=== PATIENT | female | born 1940 | race Caucasian/White ===

== ENCOUNTER 2018-01-02 05:21 | Inpatient (IN) | payer BC, OTHER ==
[2017-12-04 14:13] VITALS: BMI 33.0
--- NOTE | 2017-12-04 14:51 | PAT Medication Instructions ---
Service Date Dec 04, 2017. Current Home Medication List Atenolol (Tenormin), 50 MG PO QAM Cholecalciferol (Vitamin D3), 5,000 UNITS PO QAM Esomeprazole Magnesium (Nexium), 20 MG PO QAM Krill Oil (Megared [place]-3 Krill Oil 500 mg), 4,000 MG PO QAM Misc Natural Products (Osteo Bi-Flex Advanced Do), 1 TAB PO QAM Polyethylene Glycol 3350 (Miralax), 2 TBS PO HS PRN for PRN Medication Instructions For Your Scheduled Surgery - Hold the following medications 2 weeks prior to surgery: Krill Oil (Megared [place]-3 Krill Oil 500 mg), 4,000 MG PO QAM Misc Natural Products (Osteo Bi-Flex Advanced Do), 1 TAB PO QAM - Hold the following medications the morning of surgery: Polyethylene Glycol 3350 (Miralax), 2 TBS PO HS PRN for PRN Cholecalciferol (Vitamin D3), 5,000 UNITS PO QAM - Take the following medications the morning of surgery with a sip of water: Atenolol (Tenormin), 50 MG PO QAM Esomeprazole Magnesium (Nexium), 20 MG PO QAM - Take the following medications as scheduled the night before surgery: Polyethylene Glycol 3350 (Miralax), 2 TBS PO HS PRN for PRN (if needed) If you have any questions please call us at [phone] or [phone] or [phone]
[2017-12-04 15:28] LABS: BASO % 0.4 %; BASO ABS # 0.03 K/uL (0-0.2); EOS % 2.5 %; EOS ABS # 0.17 K/uL (0-0.5); HEMATOCRIT 40.5 % (37-47); HEMOGLOBIN 13.7 g/dL (12.0-16.0); IG# 0.02 K/uL (0.00-0.02); LYMPH ABS # 1.87 K/uL (1.2-3.4); MEAN CELL VOLUME 90.4 fL (80-100); MEAN CORPUSCULAR HEMOGLOBIN 30.6 pg (25-34); MEAN CORPUSCULAR HGB CONC 33.8 g/dl (32-36); MEAN PLATELET VOLUME 10.8 fL (7.4-10.4); MONO % 8.7 %; MONO ABS # 0.58 K/uL (0.11-0.59); NEUT % 60.1 %; NEUT ABS # 4.02 K/uL (1.4-6.5); PLATELET COUNT 272 K/uL (130-400); RED CELL DISTRIBUTION WIDTH CV 12.9 % (11.5-14.5); RED CELL DISTRIBUTION WIDTH SD 42.2 fL (36.4-46.3); WHITE BLOOD COUNT 6.69 K/uL (4.8-10.8)
[2017-12-04 15:43] LABS: PTT PATIENT 25.1 SECONDS (21.0-31.0)
--- NOTE | 2017-12-04 15:51 | DIAGNOSTIC IMAGING REPORT ---
CHEST 2 VIEWS ROUTINE CLINICAL HISTORY: 77 years-old Female presenting with preoperative assessment. TECHNIQUE: PA and lateral views of the chest were obtained. COMPARISON: 06/12/2013. FINDINGS: Atherosclerosis of the aortic arch. Cardiac silhouette normal in size. Lungs and pleural spaces clear. Osseous structures normal. Surgical clips noted in the right breast. Cholecystectomy clip. IMPRESSION: 1. No acute cardiopulmonary disease. Electronically signed by: Jeffery Hernandes M.D. 12/04/2017 3:50 PM Dictated Date/Time: 12/04/2017 3:49 PM
[2017-12-05 07:01] LABS: HEMOGLOBIN A1C 5.9 % (4.5-5.6)
--- NOTE | 2018-01-01 18:25 | HISTORY & PHYSICAL EXAMINATION ---
DATE OF ADMISSION: 01/02/2018 CHIEF COMPLAINT: Chronic right knee pain. HISTORY OF PRESENT ILLNESS: This is a 77-year-old female patient of Dr. Urban'azalea complaining of chronic right knee pain, longstanding, now progressively getting worse. The patient has failed conservative treatment including anti-inflammatories, the use of a sleeve and a cane. She has been diagnosed with end-stage osteoarthritis per clinical and radiographic exams. The patient has increased pain with weightbearing activities and her pain does interfere with her activities of daily living. PAST MEDICAL HISTORY: Hypertension, history of blood clots, neck problems, acid reflux, obesity, skin cancer. SOCIAL HISTORY: Nonsmoker, nondrinker. PAST SURGICAL HISTORY: Cholecystectomy, left knee replacement, tonsil surgery, eye surgery and tubal ligation. REVIEW OF SYSTEMS: The patient complains of chronic right knee pain, otherwise denies any shortness of breath, chest pain, nausea, vomiting or any other joint complaints. FAMILY HISTORY: Noncontributory. MEDICATIONS: Nexium 20 mg daily, atenolol 25 mg daily, fish oil daily, bioflex [id number] daily, calcium 500 with vitamin D daily. ALLERGIES: INCLUDES LATEX AND OXYCODONE. PHYSICAL EXAMINATION: GENERAL: Well-developed, well-nourished 77-year-old female in no acute distress. She is alert and oriented x3 and pleasant. HEENT: Normocephalic, atraumatic. Extraocular motions are intact. Pupils are equal and reactive to light. HEART: Regular rate and rhythm. No murmurs appreciated. LUNGS: Clear. ABDOMEN: Soft and nontender. Bowel sounds are present. EXTREMITIES: Right knee reveals lateral joint line tenderness with a valgus deformity. She has a limited range of motion of 0-120 degrees. She has a mild effusion. She has 4/5 strength. NEUROLOGIC: Neurovascularly, she is intact in her right lower extremity. DIAGNOSES: Right knee end-stage osteoarthritis, hypertension, history of blood clots, neck problems, osteoarthritis, acid reflux and obesity and skin cancer. PLAN: The patient was advised of her diagnosis. Indications, risks, benefits, postop course have all been reviewed. The patient wished to proceed with a right total knee arthroplasty. Necessary consent forms, preoperative testing and clearances will be obtained.
[~2018-01-02] VITALS: Ht 160 cm; Wt 85.9 kg
[2018-01-02] VITALS (9 sets, daily range): BP systolic 116–164; BP diastolic 58–83; PULSE 48–63; TEMP 36.4–36.8; O2SAT 94–100; Ht 160 cm; Wt 85.9 kg
[~2018-01-02 05:21] MED LIST: ATEN-173 PO; CHOL20007 PO; ESOM20CA PO; KRIL1CAP18 PO; MISCTAB78 PO; POLY335019 PO
[2018-01-02] MEDS ORDERED: DEXAMETHASONE 4 MG TAB PO SCH (06:00)
[2018-01-02] MEDS ORDERED: FAMOTIDINE 20 MG TAB PO SCH (06:00)
[2018-01-02] MEDS ORDERED: METOCLOPRAMIDE HCL 10 MG TAB PO SCH (06:00)
[2018-01-02] MEDS ORDERED: LACTATED RINGER'S 1000ML 1,000 ML IV SCH (06:00)
[2018-01-02] MEDS ORDERED: LACTATED RINGER'S 1000ML 500 ML IV SCH (06:00)
[2018-01-02] MEDS ORDERED: ACETAMINOPHEN 500 MG TAB PO SCH (06:00)
[2018-01-02] MEDS ORDERED: ROPIVACAINE 5MG/ML 30 ML 150 MG, BUPIVACAINE 0.5% MPF INJ 30 ML, EpINEphrine HCL INJ 0.... INFIL SCH ×8 (06:00)
[2018-01-02] MEDS ORDERED: CEFAZOLIN 2000MG IV PUSH 15 ML IV SCH (06:00)
[2018-01-02] MEDS ORDERED: GABAPENTIN 300 MG CAP PO SCH (06:00)
[2018-01-02] MEDS ORDERED: CeleBREX 200 MG CAP PO SCH (06:00)
[2018-01-02] MEDS ORDERED: BUPIVACAINE 0.5 % 5 MG/1 ML PF 10ML VIAL ONE (06:25)
[2018-01-02] MEDS ORDERED: BUPIVACAINE 0.25% 30 ML VIAL ONE (06:26)
[2018-01-02] MEDS ORDERED: ORTHO JOINT ANESTHETIC ONE (07:01)
[2018-01-02] MEDS ORDERED: BACITRACIN 50000 UNIT VIAL ONE (07:01)
[2018-01-02] MEDS ORDERED: POVIDONE-IODINE OP SOLN 30 ML BTL ONE (07:01)
[2018-01-02] MEDS ORDERED: FENTANYL CITRATE INJ 50 MCG/1 ML 2 ML VIAL ONE (07:09)
[2018-01-02] MEDS ORDERED: MIDAZOLAM HCL 1 MG/ML 2ML VIAL ONE ×2 (07:09→07:50)
--- NOTE | 2018-01-02 07:14 | History & Physical Bridge Note ---
H&P Re-Evaluation Bridge Note: I have examined the patient, reviewed the History & Physical and in the interval since the performance of the History & Physical I have noted the following changes of clinical significance: No changes noted
[2018-01-02] MEDS ORDERED: ONDANSETRON INJ 2 MG/ML 2 ML VIAL IV PRN ×2 (07:15→09:15)
[2018-01-02] MEDS ORDERED: ATROPINE SULFATE 0.1 MG/ML 5ML SYR IV PRN (07:15)
[2018-01-02] MEDS ORDERED: EpHEDrine SULFATE INJ 50 MG/ML AMP IV PRN (07:15)
[2018-01-02] MEDS ORDERED: LIDOCAINE HCL 2% 2 ML VIAL (20MG/ML) ONE ×2 (07:27→08:01)
[2018-01-02] MEDS ORDERED: PROPOFOL IV EMULSION 10 MG/ML 20 ML VIAL IV ONE ×2 (07:46→08:01)
[2018-01-02] MEDS ORDERED: EpHEDrine SULFATE 50MG/5ML SYR ONE (08:01)
[2018-01-02] MEDS ORDERED: METOCLOPRAMIDE HCL INJ 5 MG/ML 2 ML VIAL IV PRN (09:15)
[2018-01-02] MEDS ORDERED: SOD PHOSPHATE/SOD BIPHOSPHATE ENEMA 132 ML BTL PR PRN (09:15)
[2018-01-02] MEDS ORDERED: MoRPHine SULFATE 2 MG/ML CARP IV PRN (09:15)
[2018-01-02] MEDS ORDERED: CEFAZOLIN IV 2,000 MG in DEXTROSE 5% 50ML 50 ML IV SCH (09:15)
[2018-01-02] MEDS ORDERED: BISACODYL 10 MG SUPP PR PRN (09:15)
[2018-01-02] MEDS ORDERED: MAGNESIUM HYDROXIDE SUSP 30 ML UDC PO PRN (09:15)
--- NOTE | 2018-01-02 09:17 | [facility] Post Operative Brief Note ---
Immediate Operative Summary Operative Date Jan 02, 2018. Pre-Operative Diagnosis End stage osteoarthritis, right knee Post-Operative Diagnosis End stage osteoarthritis, right knee Procedure(s) Performed Right Total Knee Arthroplasty Surgeon Dr. Urban Mercerizing Range Feeder Surgeon(s) Jason Summers PA-C Estimated Blood Loss 5 cc Findings Consistent with Post-Op Diagnosis Specimens A: Right knee bone and tissue Drains 2 hemovac Anesthesia Type MAC Spinal Regional Complication(s) none
--- NOTE | 2018-01-02 09:33 | [facility] Operative Report ---
Operative Report Operative Date Jan 02, 2018. Pre-Operative Diagnosis End stage osteoarthritis, right knee Post-Operative Diagnosis Same Procedure(s) Performed Right total knee arthroplasty Surgeon Dr. Urban Freight Agent Surgeon(s) Jason Summers PA-C Estimated Blood Loss 5 cc Findings Tricompartmental DJD valgus knee grade 4 lateral compartment with some bone loss posterior lateral tibial plateau Specimens A: Right knee bone and tissue Drains 2 hemovac Anesthesia Spinal sedation adductor block orthomix Complication(s) None Disposition Recovery Room / PACU Indications End-stage osteoarthritis of the right knee [id number] failed conservative management Description of Procedure The patient was taken to the operating room and anesthetized under spinal and sedation and adductor block. Patient was placed supine on the the operating table. A pneumatic tourniquet was placed about the right upper thigh. The knee exam demonstrated a 15 flexion contracture with flexion to 100 and a valgus knee. An anterior longitudinal incision was made across the knee. Skin flaps were elevated. An incision was made into the medial retinaculum and extended up into the mid third of the quadriceps tendon and extended down to the tibial tubercle. Intra-articular findings demonstrated tricompartmental DJD [id number] lateral compartment some bone loss in the posterior lateral compartment on the tibia chronic degenerative tearing lateral meniscus with some meniscal loss. The knee was exposed by excising cruciate ligaments and menisci. The infrapatellar fat pad was resected. The fat pad over the anterior femur at the upper aspect of the articular surface was resected for placement of the component in that area. A subperiosteal peel lateral release was performed around the patella The Vidal and nephew journey 2.0 total knee arthroplasty system was utilized for the procedure. The custom femoral cutting guide was pinned in position. The distal femoral cut was made. The size 3, 5 in 1 cutting block was placed. The anterior posterior and chamfer cuts were made. The knee was extended and a free hand cut technique was performed to the patella. The patella with was measured and the width was reproduced using a 29 dome patella component. 3 drill holes are made for the patella component pegs. The tibia was then subluxed. The custom tibial cutting block was pinned in position and the proximal tibial cut was made with the oscillating saw. The size 2 tibial trial was externally rotated in line with the tibial tubercle and pinned in position. The punch for the stem was used and the collet was placed. Tibial trials were used for the insert. The size 10 trial gave balanced ligaments through full range of motion. Patella tracking was assessed with range of motion. The patella tracked centrally. The trials were removed. The Orthomix anesthetic cocktail was injected per protocol. The cut bone surfaces and soft tissue were copiously irrigated with antibiotic solution with bacitracin. The final components were cemented with Simplex cement. The final components were posterior stabilized Oxinium Vidal & Nephew journey 2.0 size 3 femoral component with size 2 primary tibial baseplate and size 10 high flex posterior stabilized polyethylene insert and 29 mm dome patella. While the cement cured the Betadine soak was used per protocol. When the cement cured the knee was copiously irrigated with pulsatile lavage antibiotic solution with bacitracin. 2 drains were brought out laterally connected to Hemovac. The quadriceps tendon and medial retinaculum were closed with interrupted [id number] #1 Vicryl sutures. The knee was taken through full range of motion and repair was secure. The subcutaneous tissues were closed with 2-0 Vicryl sutures. The skin was closed with tara. A sterile dressing was applied. The tourniquet was let down and the patient had good capillary refill to the extremity. The patient tolerated the procedure well. My physician reproductive healthcare assistant Jason ARNOLD assisted in the procedure including prepping draping leg positioning soft tissue retraction instrument management and assisted in the closure ,dressings application and will participate in postoperative care the patient. I attest to the content of the Intraoperative Record and any orders documented therein. Any exceptions are noted below.
--- NOTE | 2018-01-02 09:44 | DIAGNOSTIC IMAGING REPORT ---
R KNEE 2 VIEWS ROUTINE CLINICAL HISTORY: Degenerative arthritis. Postop study COMPARISON: None. DISCUSSION: There are postsurgical changes of a total right knee arthroplasty and patellar resurfacing. The femoral tibial components appear well seated. Overlying skin tara and surgical drains are evident. There is air within soft tissues consistent with recent surgery. IMPRESSION: Postsurgical changes of a total right knee arthroplasty. Electronically signed by: Gilberto Medina M.D. 01/02/2018 9:43 AM Dictated Date/Time: 01/02/2018 9:42 AM
--- NOTE | 2018-01-02 09:58 | Anesthesiology Progress Note ---
Anesthesia Post Op Note Date & Time Jan 02, 2018 at 09:58 Vital Signs Pain Intensity: 0 Vital Signs Past 12 Hours Date Time Temp Pulse Resp B/P (MAP) Pulse Ox O2 Delivery O2 Flow Rate FiO2 01/02/18 09:48 49 16 01/02/18 09:48 48 16 97 01/02/18 09:46 134/57 01/02/18 09:43 49 16 01/02/18 09:43 49 16 96 01/02/18 09:41 138/72 01/02/18 09:38 55 20 01/02/18 09:38 56 20 99 01/02/18 09:36 142/64 01/02/18 09:35 36.3 53 16 142/64 (72) 97 Nasal Cannula 2 Oxymask 01/02/18 09:33 53 17 01/02/18 09:33 53 17 99 01/02/18 09:32 51 17 01/02/18 09:32 51 17 01/02/18 09:32 51 17 97 01/02/18 09:32 51 17 97 01/02/18 09:31 132/63 01/02/18 09:31 132/63 01/02/18 09:27 54 16 98 01/02/18 09:27 54 16 98 01/02/18 09:27 53 16 01/02/18 09:27 53 16 01/02/18 09:26 140/58 01/02/18 09:26 140/58 01/02/18 09:22 54 20 01/02/18 09:22 53 20 98 01/02/18 09:22 54 20 01/02/18 09:22 53 20 98 01/02/18 09:20 121/57 01/02/18 09:20 121/57 01/02/18 09:17 50 17 01/02/18 09:17 50 17 01/02/18 09:17 50 17 97 01/02/18 09:17 50 17 97 01/02/18 09:15 121/51 01/02/18 09:15 121/51 01/02/18 09:12 54 21 01/02/18 09:12 54 21 123/57 97 01/02/18 09:12 36.3 51 16 123/57 (73) 97 Oxymask 10 01/02/18 09:12 54 21 123/57 97 01/02/18 09:12 54 21 01/02/18 05:40 36.6 48 20 164/83 95 Room Air Notes Mental Status: alert / awake / arousable, participated in evaluation Pt Amnestic to Procedure: Yes Nausea / Vomiting: adequately controlled Pain: adequately controlled Airway Patency, RR, SpO2: stable & adequate BP & HR: stable & adequate Hydration State: stable & adequate Neuraxial Anesthesia: was administered, sensory block is resolving Anesthetic Complications: no major complications apparent
[2018-01-02] MEDS ORDERED: POLYETHYLENE (MIRALAX) 17 GM PACK PO PRN (10:45)
--- NOTE | 2018-01-02 10:53 | History and Physical ---
History & Physical Date & Time of Service: Jan 02, 2018 at 10:50 Chief Complaint: Right Knee Osteoarthritis Primary Care Physician: Dr. Alexander History of Present Illness Source: patient, clinic records, hospital records This is a 77yo F with a PMH of HTN, GERD and OA who is POD #0 s/p R TKA by Dr. Urban. Patient is doing well post-operatively. States that knee pain is currently a 0/10. Denies any pain, fever, chills, lightheadedness, headache, visual changes, sore throat, CP, SOB, abdominal pain, nausea, vomiting, dysuria or LE swelling. PCP is Dr. Alexander from [place], [place]. Had a L TKA performed by Dr. Urban in 2012. Denies history of CAD, DM II, CKD. Had a DVT 2/2 fracture in foot >10 years ago. Has not been on anticoagulation since. Past Medical/Surgical History Medical Problems: (1) GERD (gastroesophageal reflux disease) Status: Chronic (2) H/O deep venous thrombosis Status: Chronic (3) HTN (hypertension) Status: Chronic (4) Osteoarthritis of both knees Status: Chronic (5) Vitamin D deficiency Status: Chronic Surgical Problems: (1) H/O tubal ligation Status: Chronic (2) S/P cholecystectomy Status: Chronic (3) Status post left knee replacement Permanent Comment: [address] Urban Status: Chronic Family History Diabetes mellitus Hypertension Social History Smoking Status: Never Smoker Alcohol Use: none Drug Use: none Marital Status: Housing status: lives with significant other Immunizations History of Influenza Vaccine: N/A History of Tetanus Vaccine?: Unknown History of Pneumococcal: Yes History of Hepatitis B Vaccine: Unknown Allergies Coded Allergies: Oxycodone (Verified Allergy, Unknown, FELT GOOFY DISORIENTED LIKE A ZOMBIE NAUSEA VOMITING, 01/02/18) Statins (Verified Allergy, Unknown, COUGH, 01/02/18) Adhesives (Verified Adverse Reaction, Intermediate, SKIN TEARS AROUND GALLBLADDER SURGERY IRRITATES SKIN-TAPE, 01/02/18) SKIN TEARS AROUND GALLBLADDER SURGERY YEARS AGO - PT THOUGHT IT WAS A LATEX PRODUCT BUT NEVER HAD ANY OTHER REACTIONS TO RUBBER GLOVES ETC. Home Medications Scheduled Atenolol (Tenormin), 75 MG PO QAM Cholecalciferol (Vitamin D3), 5,000 UNITS PO QAM Esomeprazole Magnesium (Nexium), 20 MG PO QAM Krill Oil (Megared [place]-3 Krill Oil 500 mg), 4,000 MG PO QAM Misc Natural Products (Osteo Bi-Flex Advanced Do), 1 TAB PO QAM Scheduled PRN Polyethylene Glycol 3350 (Miralax), 2 TBS PO HS PRN for PRN Review of Systems Ten systems reviewed and negative except as noted in the HPI. Physical Exam Vital Signs Date Time Temp Pulse Resp B/P (MAP) Pulse Ox O2 Delivery O2 Flow Rate FiO2 01/02/18 10:48 100 Nasal Cannula 2.0 01/02/18 10:15 36.4 54 16 154/69 (97) 100 Nasal Cannula 2.0 01/02/18 10:15 100 Nasal Cannula 2.0 01/02/18 10:04 49 16 01/02/18 10:04 49 16 96 01/02/18 10:01 144/57 01/02/18 09:59 57 21 99 01/02/18 09:59 58 21 01/02/18 09:55 128/59 01/02/18 09:54 47 16 96 01/02/18 09:54 47 16 01/02/18 09:51 120/58 01/02/18 09:49 47 17 01/02/18 09:49 47 17 97 01/02/18 09:48 49 16 01/02/18 09:48 48 16 97 01/02/18 09:46 134/57 01/02/18 09:43 49 16 01/02/18 09:43 49 16 96 01/02/18 09:41 138/72 01/02/18 09:38 55 20 01/02/18 09:38 56 20 99 01/02/18 09:36 142/64 01/02/18 09:35 36.3 53 16 142/64 (72) 97 Nasal Cannula 2 Oxymask 01/02/18 09:33 53 17 01/02/18 09:33 53 17 99 01/02/18 09:32 51 17 01/02/18 09:32 51 17 01/02/18 09:32 51 17 97 01/02/18 09:32 51 17 97 01/02/18 09:31 132/63 01/02/18 09:31 132/63 01/02/18 09:27 54 16 98 01/02/18 09:27 54 16 98 01/02/18 09:27 53 16 01/02/18 09:27 53 16 01/02/18 09:26 140/58 01/02/18 09:26 140/58 01/02/18 09:22 54 20 01/02/18 09:22 53 20 98 01/02/18 09:22 54 20 01/02/18 09:22 53 20 98 01/02/18 09:20 121/57 01/02/18 09:20 121/57 01/02/18 09:17 50 17 01/02/18 09:17 50 17 01/02/18 09:17 50 17 97 01/02/18 09:17 50 17 97 01/02/18 09:15 121/51 01/02/18 09:15 121/51 01/02/18 09:12 54 21 01/02/18 09:12 54 21 123/57 97 01/02/18 09:12 36.3 51 16 123/57 (73) 97 Oxymask 10 01/02/18 09:12 54 21 123/57 97 01/02/18 09:12 54 21 01/02/18 05:40 36.6 48 20 164/83 95 Room Air General Appearance: WD/WN, no apparent distress, + pertinent finding (Resting comfortably ) Head: normocephalic, atraumatic Eyes: normal inspection, PERRL, sclerae normal ENT: normal ENT inspection, hearing grossly normal, pharynx normal (moist mucous membranes ) Neck: supple, thyroid normal, trachea midline Respiratory/Chest: chest non-tender, lungs clear, normal breath sounds, no respiratory distress, no accessory muscle use Cardiovascular: regular rate, rhythm, no murmur, normal peripheral pulses Abdomen/GI: non tender, soft, no organomegaly Back: normal inspection, no CVA tenderness Extremities/Musculoskelatal: normal inspection (R knee with dressing in place. Clean, dry, intact. Drain visualized. ), no calf tenderness, normal capillary refill, no pedal edema, + pertinent finding (SCDs) Neurologic/Psych: no motor/sensory deficits, alert, normal mood/affect, oriented x 3 Skin: normal color, warm/dry Impression Assessment and Plan This is a 77yo F with a PMH of HTN, GERD and OA who is POD #0 s/p R TKA by Dr. Urban. Right Knee OA s/p R TKA: -POD #0 s/p R TKA -Doing well post-operatively -Per ortho for pain control, wound care, anticoagulation and activities -Monitor H&H, continue incentive spirometry, PT/OT when appropriate HTN: -Continue home atenolol -Monitor and add additional agent if needed Vit D deficiency: -Cont home dose Vit D GERD: -PPI held for now PCP: Dr Alexander ([place]) Dispo: Per ortho Patient seen in collaboration with Dr. Conner. Please see addendum. Thank you for this consultation. We will follow the patient with you during their hospital stay. You can reach a member of the [facility] Hospitalist Team 21/05 via pager @ [phone]. Attending physician Dr. Conner addendum I have seen and examined the patient with CLAYTON Hassan and agree with the assessment and plan as above that patient is s/p Right total knee arthroplasty with hemovac still present and collecting blood. Patient denies acute pain but needs assistance with nurse to reach the commode. Blood pressure stable. Noted to have bradycardia but without reported symptoms of lightheadedness. Hospitalist medicine team will continue to follow. Advanced Directives Existing Living Will: No Existing Power of Metal Tile Lather: No Resuscitation Status VTE Prophylaxis Will order VTE Prophylaxis: Yes
[2018-01-02] MEDS ORDERED: MoRPHine SULFATE 4 MG/ML 1 ML CARP\\VIAL IV PRN (11:00)
[2018-01-02] MEDS: D5W AND 1/2NSS + 20MEQ KCL 1,000 ML IV SCH ×2 (11:05→23:16)
[2018-01-02 11:42] LABS: ALBUMIN 3.8 gm/dl (3.4-5.0); CREATININE 0.93 mg/dl (0.60-1.20)
[2018-01-02 11:45] LABS: TOTAL PROTEIN 7.1 gm/dl (6.4-8.2)
[2018-01-02] MEDS: ACETAMINOPHEN 500 MG TAB PO SCH ×2 (13:25→21:37)
[2018-01-02] MEDS: CEFAZOLIN IV 2,000 MG in SYRINGE 0 ML IV SCH ×2 (16:03→23:44)
[2018-01-02] MEDS: RIVAROXABAN 10 MG TAB PO SCH (18:49)
[2018-01-02] MEDS: TRAMADOL HCL 50 MG TAB PO PRN (18:50)
[2018-01-02] MEDS: DOCUSATE SODIUM 100 MG CAP PO SCH (21:36)
[2018-01-02] MEDS: CeleBREX 200 MG CAP PO SCH (21:37)
[2018-01-03 03:20] VITALS: BP 122/60; PULSE 61; TEMP 36.9; O2SAT 96
[2018-01-03 06:00] LABS: HEMATOCRIT 27.2 % (37-47); HEMOGLOBIN 9.3 g/dL (12.0-16.0); MEAN CORPUSCULAR HEMOGLOBIN 30.1 pg (25-34); MEAN CORPUSCULAR HGB CONC 34.2 g/dl (32-36); MEAN PLATELET VOLUME 10.6 fL (7.4-10.4); PLATELET COUNT 196 K/uL (130-400); RED CELL DISTRIBUTION WIDTH CV 12.7 % (11.5-14.5); RED CELL DISTRIBUTION WIDTH SD 41.2 fL (36.4-46.3); WHITE BLOOD COUNT 12.28 K/uL (4.8-10.8)
[2018-01-03] MEDS: ACETAMINOPHEN 500 MG TAB PO SCH ×3 (06:00→21:23)
[2018-01-03 06:37] LABS: CALCIUM 7.9 mg/dl (8.5-10.1); CREATININE 1.02 mg/dl (0.60-1.20); POTASSIUM 4.5 mmol/L (3.5-5.1)
[2018-01-03] MEDS: D5W AND 1/2NSS + 20MEQ KCL 1,000 ML IV SCH (07:15)
[2018-01-03 07:23] VITALS: BP 146/75; PULSE 60; TEMP 36.5; O2SAT 97
--- NOTE | 2018-01-03 07:55 | Anesthesiology Progress Note ---
Anesthesia Post Op Note Date & Time Jan 03, 2018 at 07:54 Vital Signs Pain Intensity: 0.0 Vital Signs Past 12 Hours Date Time Temp Pulse Resp B/P (MAP) Pulse Ox O2 Delivery O2 Flow Rate FiO2 01/03/18 07:23 36.5 60 16 146/75 (98) 97 Room Air 01/03/18 03:20 36.9 61 16 122/60 (80) 96 Room Air 01/02/18 23:35 Room Air 01/02/18 22:47 36.5 58 18 138/67 (90) 97 Room Air Notes Mental Status: alert / awake / arousable, participated in evaluation Pt Amnestic to Procedure: Yes Nausea / Vomiting: adequately controlled Pain: adequately controlled Airway Patency, RR, SpO2: stable & adequate BP & HR: stable & adequate Hydration State: stable & adequate Neuraxial Anesthesia: was administered, sensory block resolved Anesthetic Complications: no major complications apparent
[2018-01-03] MEDS: CHOLECALCIFEROL 1000 INTER.UNIT TAB PO SCH (08:39)
[2018-01-03] MEDS: MULTIVITAMIN TAB PO SCH (08:39)
[2018-01-03] MEDS: PANTOprazole SOD 40 MG TAB PO SCH (08:39)
[2018-01-03] MEDS: DOCUSATE SODIUM 100 MG CAP PO SCH ×2 (08:40→21:23)
[2018-01-03] MEDS: CeleBREX 200 MG CAP PO SCH ×2 (08:42→21:22)
--- NOTE | 2018-01-03 11:02 | Clinical Documentation Query ---
DELMIS Kitchen : CLINICAL DOCUMENTATION QUERY Patient is a 77 year old female who on 01/02 underwent elective right TKA. Total blood loss to date of 1,195 ml's. Preoperative H&H was 13.7 g/dl and 40.5%. POD #1, repeat values were 9.3 g/dl and 27.2%. Additionally, net I/O is positive at this time for 1,729 ml's. He is being monitored with serial hematology and I/O including drain outputs. In your clinical opinion is this patient being managed for: ( x ) Acute blood loss and hemodilutional anemia ( ) Not Agree ( ) Other explanation of clinical findings (Please Explain) ( ) Unable to determine (Please Define) ( ) Need to Discuss The medical record reflects the following clinical findings, treatment, and risk factors. Clinical Indicators: As above Treatment: He is being monitored with serial hematology and I/O including drain outputs Risk Factors: Acute blood loss and IVF administration Please clarify and document your clinical opinion in the progress notes and discharge summary. Terms such as "probable", "suspected", "likely", "questionable", "possible", or "still to be ruled out" are acceptable. IF IN AGREEMENT, YOU MUST DOCUMENT ABOVE DIAGNOSTIC STATEMENT IN DAILY PROGRESS NOTES AND DISCHARGE SUMMARY. This document is not part of the patient's record. Thank You, Ulises Contreras, RN [phone]
--- NOTE | 2018-01-03 11:42 | Progress Note ---
Internal Med Progress Note Date of Service: Jan 03, 2018. Provider Documentation: Hospitalist Consultation follow up SUBJECTIVE: Patient seen at bedside. Denies pain or shortness of breath OBJECTIVE: Exam: General- no acute distress Eyes- EOMI Neck- no JVD, trachea midline Lungs- CTABL Heart- RRR Abdomen-soft, nontender, + bowel sounds Extremities- right knee with wound vac drain, patient able to move toes bilateral feet Neuro- awake and alert Lab data as noted below. ASSESSMENT & PLAN: s/p Right total knee arthroplasty with hemovac Leukocytolysis post-op as WBC on 01/03/18 is 12,000 No fever Postop anemia as Hgb 9.3 compared to November Hgb of 13.7 Operative report of only 5 cc blood loss Wound vac collecting blood recommend to trend CBC and maintain active type and screen Of note, patient is on Xarelto for which reversal agent is not readily available If continues to become very anemic or active bleeding, may be possible that patient to be transitioned to IV heparin for anticoagulation vs holding Xarelto Per ortho for pain control, wound care, anticoagulation and activities continue incentive spirometry, PT/OT when appropriate HTN history: blood pressure controlled on home dose atenolol, bradycardia without symptoms Vit D deficiency: Cont home dose Vit D GERD: can restart PPI if needed Vital Signs: Date Time Temp Pulse Resp B/P (MAP) Pulse Ox O2 Delivery O2 Flow Rate FiO2 01/03/18 11:48 36.5 50 16 135/69 (91) 98 Room Air 01/03/18 07:23 36.5 60 16 146/75 (98) 97 Room Air 01/03/18 07:17 Room Air 01/03/18 03:20 36.9 61 16 122/60 (80) 96 Room Air 01/02/18 23:35 Room Air 01/02/18 22:47 36.5 58 18 138/67 (90) 97 Room Air 01/02/18 18:56 36.7 63 18 116/66 (83) 96 Room Air 01/02/18 15:15 36.8 56 18 125/72 (89) 94 Room Air 01/02/18 15:10 Room Air 01/02/18 13:17 60 17 122/63 (82) 99 Nasal Cannula 2.0 01/02/18 12:15 51 16 132/77 (95) 99 2.0 Lab Results: Results Past 24 Hours Test 01/03/18 05:34 Range/Units White Blood Count 12.28 4.8-10.8 K/uL Red Blood Count 3.09 4.2-5.4 M/uL Hemoglobin 9.3 12.0-16.0 g/dL Hematocrit 27.2 37-47 % Mean Corpuscular Volume 88.0 80-100 fL Mean Corpuscular Hemoglobin 30.1 25-34 pg Mean Corpuscular Hemoglobin Concent 34.2 32-36 g/dl RDW Standard Deviation 41.2 36.4-46.3 fL RDW Coefficient of Variation 12.7 11.5-14.5 % Platelet Count 196 130-400 K/uL Mean Platelet Volume 10.6 7.4-10.4 fL Sodium Level 139 136-145 mmol/L Potassium Level 4.5 3.5-5.1 mmol/L Chloride Level 109 98-107 mmol/L Carbon Dioxide Level 26 21-32 mmol/L Anion Gap 4.0 3-11 mmol/L Blood Urea Nitrogen 17 7-18 mg/dl Creatinine 1.02 0.60-1.20 mg/dl Est Creatinine Clear Calc Drug Dose 48.0 ml/min Estimated GFR () 61.4 Estimated GFR (Non- 53.0 BUN/Creatinine Ratio 16.4 10-20 Random Glucose 156 70-99 mg/dl Calcium Level 7.9 8.5-10.1 mg/dl
[2018-01-03 11:48] VITALS: BP 135/69; PULSE 50; TEMP 36.5; O2SAT 98
--- NOTE | 2018-01-03 11:54 | Clinical Documentation Query ---
LUIS Tristan : CLINICAL DOCUMENTATION QUERY Patient is a 77 year old female who on 01/02 underwent elective right TKA. Total blood loss to date of 1,195 ml's. Preoperative H&H was 13.7 g/dl and 40.5%. POD #1, repeat values were 9.3 g/dl and 27.2%. Additionally, net I/O is positive at this time for 1,729 ml's. He is being monitored with serial hematology and I/O including drain outputs. In your clinical opinion is this patient being managed for: ( ) Acute blood loss and hemodilutional anemia ( ) Not Agree ( x ) Other explanation of clinical findings (Please Explain) ( ) Unable to determine (Please Define) ( ) Need to Discuss Please see the patient's consult follow upnote The medical record reflects the following clinical findings, treatment, and risk factors. Clinical Indicators: As above Treatment: He is being monitored with serial hematology and I/O including drain outputs Risk Factors: Acute blood loss and IVF administration Please clarify and document your clinical opinion in the progress notes and discharge summary. Terms such as "probable", "suspected", "likely", "questionable", "possible", or "still to be ruled out" are acceptable. IF IN AGREEMENT, YOU MUST DOCUMENT ABOVE DIAGNOSTIC STATEMENT IN DAILY PROGRESS NOTES AND DISCHARGE SUMMARY. This document is not part of the patient's record. Thank You, Ulises Contreras, SIMONA [phone]
--- NOTE | 2018-01-03 14:53 | Orthopedic Progress Note ---
Orthopedic Progress Note Date of Service Jan 03, 2018. Subjective Post OP Day: 1 Reports: feeling well, pain controlled w PO medications, Denies: complaints, chest pain, SOB, nausea / vomiting, light headedness, calf pain Objective calves soft nontender, N/V intact, capillary refill less than 2 sec., dressing C /D/I, A&O x3, toes mobile Date Time Temp Pulse Resp B/P (MAP) Pulse Ox O2 Delivery O2 Flow Rate FiO2 01/03/18 11:48 36.5 50 16 135/69 (91) 98 Room Air 01/03/18 07:23 36.5 60 16 146/75 (98) 97 Room Air 01/03/18 07:17 Room Air 01/03/18 03:20 36.9 61 16 122/60 (80) 96 Room Air 01/02/18 23:35 Room Air 01/02/18 22:47 36.5 58 18 138/67 (90) 97 Room Air 01/02/18 18:56 36.7 63 18 116/66 (83) 96 Room Air 01/02/18 15:15 36.8 56 18 125/72 (89) 94 Room Air 01/02/18 15:10 Room Air Laboratory Results 24 Hours: Test 01/03/18 05:34 Hematocrit 27.2 % Hemoglobin 9.3 g/dL Assessment & Plan Assessment: POD #1, Right TKA Plan: PT/ OT DVT proph- Xarelto D/C planning- Home w OPPT As per medicine Inhouse Planning Pain Management: Celebrex, Ultram, Morphine, PO Tylenol DVT Prophylaxis: TEDs, SCDs, ASA Discharge Planning Discharge Planning: home with oppt Pain Management: Ultram, PO Tylenol DVT Prophylaxis: TEDs, ASA Therapy: Physical Therapy, Occupational Therapy
[2018-01-03 15:32] VITALS: BP 124/46; PULSE 54; TEMP 36.8; O2SAT 96
[2018-01-03] MEDS: TRAMADOL HCL 50 MG TAB PO PRN ×2 (16:28→22:20)
[2018-01-03] MEDS: RIVAROXABAN 10 MG TAB PO SCH (18:39)
[2018-01-03 22:52] VITALS: BP 129/60; PULSE 53; TEMP 36.9; O2SAT 97
[2018-01-04] MEDS: ACETAMINOPHEN 500 MG TAB PO SCH (05:45)
[2018-01-04 06:14] VITALS: BP 133/72; PULSE 66; TEMP 36.8; O2SAT 96
[2018-01-04 06:48] LABS: HEMATOCRIT 29.3 % (37-47); HEMOGLOBIN 10.4 g/dL (12.0-16.0); MEAN CELL VOLUME 89.9 fL (80-100); MEAN CORPUSCULAR HEMOGLOBIN 31.9 pg (25-34); MEAN CORPUSCULAR HGB CONC 35.5 g/dl (32-36); MEAN PLATELET VOLUME 11.5 fL (7.4-10.4); PLATELET COUNT 259 K/uL (130-400); RED CELL DISTRIBUTION WIDTH CV 13.1 % (11.5-14.5); RED CELL DISTRIBUTION WIDTH SD 43.5 fL (36.4-46.3); WHITE BLOOD COUNT 10.56 K/uL (4.8-10.8)
[2018-01-04 07:21] LABS: CALCIUM 8.8 mg/dl (8.5-10.1); CREATININE 1.21 mg/dl (0.60-1.20); POTASSIUM 4.3 mmol/L (3.5-5.1)
[2018-01-04 08:15] VITALS: BP 142/63; PULSE 57; TEMP 36.9; O2SAT 98
[2018-01-04] MEDS: TRAMADOL HCL 50 MG TAB PO PRN ×2 (08:32→13:59)
[2018-01-04] MEDS: PANTOprazole SOD 40 MG TAB PO SCH (08:33)
[2018-01-04] MEDS: DOCUSATE SODIUM 100 MG CAP PO SCH (08:33)
[2018-01-04] MEDS: MULTIVITAMIN TAB PO SCH (08:33)
--- NOTE | 2018-01-04 08:33 | Orthopedic Progress Note ---
Orthopedic Progress Note Date of Service Jan 04, 2018. Subjective Post OP Day: 2 Reports: feeling well, pain controlled w PO medications, Denies: complaints, chest pain, SOB, nausea / vomiting, light headedness, calf pain Objective calves soft nontender, N/V intact, capillary refill less than 2 sec., incision C /D/I, A&O x3, toes mobile Date Time Temp Pulse Resp B/P (MAP) Pulse Ox O2 Delivery O2 Flow Rate FiO2 01/04/18 08:15 36.9 57 18 142/63 (89) 98 Room Air 01/04/18 06:14 36.8 66 20 133/72 (92) 96 Room Air 01/03/18 22:52 36.9 53 16 129/60 (83) 97 Room Air 01/03/18 20:00 Room Air 01/03/18 15:32 36.8 54 18 124/46 (72) 96 Room Air 01/03/18 11:48 36.5 50 16 135/69 (91) 98 Room Air Laboratory Results 24 Hours: Test 01/04/18 05:47 Hematocrit 29.3 % Hemoglobin 10.4 g/dL Assessment & Plan Assessment: POD #2, Right TKA Plan: PT/ OT DVT proph- Xarelto D/C planning- Home w OPPT today As per medicine Renal functions elevated will stop Celebrex Inhouse Planning Pain Management: Celebrex, Ultram, Morphine, PO Tylenol DVT Prophylaxis: TEDs, SCDs, ASA Discharge Planning Discharge Planning: home with oppt Pain Management: Ultram, PO Tylenol DVT Prophylaxis: TEDs, ASA Therapy: Physical Therapy, Occupational Therapy
[2018-01-04] MEDS ORDERED: XRL10 PO (08:34)
[2018-01-04] MEDS ORDERED: ULT50X PO (08:34)
[2018-01-04] MEDS ORDERED: ACET-24 PO (08:34)
[2018-01-04] MEDS: CHOLECALCIFEROL 1000 INTER.UNIT TAB PO SCH (08:36)
--- NOTE | 2018-01-04 08:36 | Discharge Instructions ---
Discharge Instructions Date of Service Jan 04, 2018. Admission Reason for Admission: Right Knee Osteoarthritis Discharge Discharge Diagnosis / Problem: Right TKA Discharge Goals Goal(s): Improve function Activity Recommendations Activity Limitations: as noted below . Instructions / Follow-Up Instructions / Follow-Up ACTIVITY RECOMMENDATIONS: SELF CARE INSTRUCTIONS AFTER TOTAL KNEE REPLACEMENT A. You may need to continue a physical therapy program after discharge from the hospital. There are several options available to you. Your doctor will assist you in selecting the best one for you. 1. An out-patient facility 2 to 3 times a week for therapy or home therapy. 2. Continue working on all exercises taught to you in the hospital. Your goals should be to increase bending of your knee to 90 degrees and beyond and to fully straighten your knee. B. You may progress at your own pace from walking with a walker or crutches to a cane; then to no assistive devices. C. Make walking a part of your daily routine. Be up as much as comfortable with rest periods throughout the day. Rest with leg elevation is very important. Use the ice wrap frequently for the first 3-4 weeks. D. There are no restrictions on activities. You may ride in a car, shop, participate in door serviceman and all social activities. E. Wear the long elastic stockings (MAGO hose) 20 hours a day for 2 weeks after surgery. They can be removed several times a day for laundering and for a bath. F. You may shower, no tub baths until cleared by your doctor. SPECIAL CARE INSTRUCTIONS: VERY IMPORTANT TO READ AND REVIEW A. There are a few signs you need to watch for after you are home. Call [facility] if you notice any of the followin. Increased severe knee pain. Some pain is expected especially when you exercise. 2. Increased swelling in your leg or knee; pain or swelling of the calf muscle in either lower leg. 3. Any fluid drainage from the incision. 4. Shortness of breath or chest pain. B. Please call [facility] at if you have any concerns or questions about your operation or recovery. The doctor or his nurse will return your call promptly. C. You must take antibiotics before dental work, bladder, bowel or other surgery. Your doctor will provide you with a permanent care to carry describing this precaution. IMPORTANT: * REMEMBER TO TAKE ASPIRIN, 81 MG, TWICE DAILY FOR 4 WEEKS UNLESS OTHERWISE DIRECTED. THIS IS YOUR BLOOD THINNER. * HIGH RISK PATIENTS MAY BE PRESCRIBED A STRONGER BLOOD THINNER. THIS WILL BE PROVIDED AT DISCHARGE. * CALL IF INCREASED PAIN, REDNESS, DRAINAGE OR FEVER GREATER THAT 101. * WEAR MAGO HOSE 20 HOURS PER DAY FOR 2 WEEKS. * YOU MAY HAVE A LARGE BAND-AID LIKE DRESSING (SILVERON). THIS WILL REMAIN ON YOUR INCISION FOR 7 DAYS, THEN CAN BE REMOVED. IF INCISION IS LEAKING THROUGH DRESSING, CALL THE OFFICE . FOLLOW UP VISIT: If appointment is not already scheduled: Please call [facility] to make a follow-up appointment for 2 weeks after your surgery at . Current Hospital Diet Patient's current hospital diet: Regular Diet Discharge Diet Recommended Diet: Regular Diet Procedures Procedures Performed: Right Total Knee Arthroplasty Pending Studies Studies pending at discharge: no Laboratory Results Hemoglobin A1c Test 12/04/17 15:07 Range/Units Estimated Average Glucose 123 mg/dl Hemoglobin A1c 5.9 H 4.5-5.6 % Medical Emergencies . Who to Call and When: Medical Emergencies: If at any time you feel your situation is an emergency, please call 911 immediately. . Non-Emergent Contact Non-Emergency issues call your: Primary Care Provider . "Provider Documentation" section prepared by Jason Summers. . [place] Drug Monitoring Program Search Results: patient reviewed within database, no issues identified
[2018-01-04 09:34] VITALS: O2SAT 98
--- NOTE | 2018-01-04 11:16 | Consultant Recommendations ---
[employer]inator Recommendations Date of Service Jan 04, 2018. [employer]inator Recommendations Hospitalist follow up consultation Subjective: patient dressed and prepared for discharge as per orthopedics primary team Labs reviewed. Hgb stable, elevation in creatinine Patient seen at bedside. Denies pain or shortness of breath OBJECTIVE: Exam: General- no acute distress, patient dressed in regular clothes Eyes- EOMI Neck- no JVD, trachea midline Lungs- CTABL Heart- RRR Abdomen-soft, nontender, + bowel sounds Extremities- wound vac was removed yesterday Neuro- awake and alert Lab data as noted below. ASSESSMENT & PLAN: s/p Right total knee arthroplasty Patient to be discharged home as per orthopedics Patient was counseled about following with primary care doctor to get labs checks to follow up with post-op anemia and leukocytosis. Also explained to her about acute kidney injury as creatinine was elevated today and the need for hydration and follow up labs with primary care doctor and to avoid medications that can can problems to kidney such as NSAIDS (aleve, motrin, ibuprofen) discharge as per orthopedics
[2018-01-04 12:02] VITALS: BP 124/82; PULSE 50; TEMP 36.5; O2SAT 97
[2018-01-04 14:02] VITALS: BP 124/82; PULSE 50; TEMP 36.5; O2SAT 97
== END 2018-01-04 14:48 | disposition home or self-care (01) | DRG 470 ==
LOC: C.ACU 05:21 → C.3E 06:00 → ENRESERV 09:40
PROVIDERS: ADMIT Orthopaedic Surgery Sports Medicine; ATTEND Orthopaedic Surgery Sports Medicine
PROC: 0SRC0J9 Replacement of Right Knee Joint with Synthetic Substitute, Cemented, Open Approach (ICD-10-PCS; principal; 2018-01-02 07:30)
DX: M17.11 Unilateral primary osteoarthritis, right knee (principal); I10 Essential (primary) hypertension; Z86.718 Personal history of other venous thrombosis and embolism; K21.9 Gastro-esophageal reflux disease without esophagitis; E66.9 Obesity, unspecified; Z85.828 Personal history of other malignant neoplasm of skin; Z96.60 Presence of unspecified orthopedic joint implant; Z96.652 Presence of left artificial knee joint; E55.9 Vitamin D deficiency, unspecified